=== PATIENT | male | born 1950 | race Caucasian/White ===

== ENCOUNTER → 2019-02-01 | Outpatient (REF) | payer OTHER ==
[2019-02-01 18:19] LABS: PERCENT SATURATION 24.3 % (19.7-50.0)
[2019-02-01 18:20] LABS: FOLATE 13.1 NG/ML
== END ==
LOC: M LAB REF 16:56
PROVIDERS: ATTEND Internal Medicine Nephrology
DX: D64.9 Anemia, unspecified (principal)